=== PATIENT | male | born 1980 | race African-American/Black ===

== ENCOUNTER 2018-03-24 02:55 | Emergency (ER) | payer OTHER ==
[~2018-03-24] VITALS: Ht 170.2 cm; Wt 63.5 kg
--- NOTE | 2018-03-24 03:11 | NUR ---
ED Nurse Note: Received report. Pt from home, AAOx4, ambulatory, c/o right head pain. Pt placed on radiation monitor. Will assess, carry out orders and continue to monitor. Addendum: 03/24/18 at 0321 by TEVELYN ED Nurse Note: Pt stated to YUE that he took whole borttle of aleve with no relief; about 20 pills at about 220mg. Pt states pain is 10/10 currently.
[2018-03-24] MEDS ORDERED: TEGRETOL200 MG PO (03:28)
[2018-03-24] MEDS ORDERED: PENICILLIN V P500 MG PO (03:28)
[2018-03-24] MEDS ORDERED: Acetaminophen 500mg (ES) tab ORAL ONE (03:30)
[2018-03-24] MEDS ORDERED: Lidocaine 2% Visc 15ml soln ORAL ONE (03:30)
[2018-03-24 03:35] VITALS: BP 114/76
--- NOTE | 2018-03-24 04:57 | Emergency Room Report ---
History of Present Illness General Chief Complaint: Pain Source: Patient Present Illness HPI pt is a 29-year-old male presented after increased right-sided headache. Patient had prior history of some kind of dental procedure done to his right lower wisdom tooth. This is been more painful over the past few weeks. He reports having previous dental appointment which he admits. This is been a long -standing problem. He reports having worsening pain with exposure to air or cold fluids he denies any vomiting. He denies any shortness of breath.. Reports having a moderate headache. He states he has been taking Aleve without any improvement. Allergies: Coded Allergies: No Known Allergies (Unverified , 03/24/18) Patient History Past Medical History: see triage record Reviewed Nursing Documentation: PMH: Agreed; PSxH: Agreed Nursing Documentation-PMH Past Medical History: No Stated History Review of Systems All Other Systems: negative except mentioned in HPI Physical Exam Vital Signs Date Time Temp Pulse Resp B/P (MAP) Pulse Ox O2 Delivery O2 Flow Rate FiO2 03/24/18 03:03 98.2 71 15 108/65 99 Room Air General Appearance: well appearing, no apparent distress, alert, GCS 15 Head: normocephalic, atraumatic ENT: hearing grossly normal, normal voice Neck: full range of motion, supple Respiratory: no respiratory distress, speaking full sentences Cardiovascular #1: normal inspection, normal peripheral pulses, regular rate, rhythm, no edema - Plan Gastrointestinal: normal inspection, normal bowel sounds, non tender, soft, no mass Musculoskeletal: no calf tenderness Neurologic: normal inspection, alert, oriented x3, responsive, tool grinder III-XII nml as tested, motor strength/tone normal, normal gait Psychiatric: normal inspection, mood/affect normal Skin: no rash Medical Decision Making Diagnostic Impression: Primary Impression: Pain, dental ER Course Patient was then for headache. Differential diagnoses included but was not limited to skull fracture, subarachnoid hemorrhage, meningitis, aneurysm, mass lesion, intracranial hemorrhage. CT imaging was ordered due to patient's new onset of headache. CT of the head read by radiology showed no evidence of acute intracranial hemorrhage. Patient's headache appears to be dental pain which is referred. This appears to be a chronic problem without any evidence of abscess at this time. Patient was noted to have what appears to be an exposed nerve root. Patient is given prescription for antibiotics as well as for Tegretol for nerve pain. Patient was advised to follow-up with dentist or oral surgeon within the next 1-2 days for recheck. Last Vital Signs Date Time Temp Pulse Resp B/P (MAP) Pulse Ox O2 Delivery O2 Flow Rate FiO2 03/24/18 03:03 98.2 71 15 108/65 99 Room Air Status: improved Disposition: HOME, SELF-CARE Condition: Stable Scripts Carbamazepine (TEGRETOL*) 200 Mg Tablet 200 MG PO Q12HR, #10 TAB 0 Refills Prov: Stoney Salomon MD 03/24/18 Penicillin V Potassium* (PENVK*) 500 Mg Tablet 500 MG PO Q6H, #28 TAB 0 Refills Prov: Stoney Salomon MD 03/24/18 Patient Instructions: Dental Pain Stoney Salomon MD Mar 24, 2018 04:57
--- NOTE | 2018-03-24 05:33 | NUR ---
ED Nurse Note: Pt cleared for discharge per ERMD. AAOx4. NAD. VSS. Pt given prescriptions and discharge instructions; pt verbalized understanding. ID band removed. Pt ambulated out with all belongings and steady gait.
[2018-03-24 05:35] VITALS: BP 114/76
--- NOTE | 2018-03-24 12:24 | Diagnostic Imaging Report ---
Indication: Headache Technique: Contiguous 5 mm thick transaxial imaging of the head obtained in a Siemens Sensation [address] scanner. Soft tissue and bone windows generated. Automatic Exposure Control was utilized. Total Dose length Product (DLP): [address] Dose Index Volume (CTDIvol): 70.38 mGy Comparison: none Findings: The size and configuration of the cortical sulci, basal cisterns, and ventricles are within normal limits for age. There is no mass effect, midline shift, or edema identified. There is no evidence of acute hemorrhage or abnormal intra-axial or extra-axial fluid collections. The bones and soft tissues are unremarkable. Impression: No mass effect, edema or acute bleed. The CT scanner at [facility] is accredited by the [employer] and the scans are performed using dose optimization techniques as appropriate to a performed exam including Automatic Exposure control.
== END 2018-03-24 05:35 | disposition home or self-care (01) ==
LOC: EMR 03:25
DX: R51 Headache (principal); K08.89 Other specified disorders of teeth and supporting structures
CPT/HCPCS: 70450; 99284